=== PATIENT | male | born 1975 ===

== ENCOUNTER 2017-05-27 23:23 | Emergency (ER) | payer SELFPAY ==
[~2017-05-27] VITALS: Ht 172.7 cm; Wt 86.0 kg
[2017-05-27 23:30] VITALS: Ht 172.7 cm; Wt 86.0 kg
== END 2017-05-28 03:37 | disposition left against medical advice (07) ==
LOC: FTE 23:23
DX: Z53.21 Procedure and treatment not carried out due to patient leaving prior to being seen by health care provider (principal)